=== PATIENT | male | born 1990 | race Caucasian/White ===

== ENCOUNTER 2018-09-19 15:25 | Emergency (ER) | payer OTHER ==
[~2018-09-19] VITALS: Ht 185.4 cm; Wt 86.2 kg
[2018-09-19] MEDS ORDERED: ENTYVIO300 MG (15:36)
[2018-09-19] MEDS ORDERED: ENTYVIO300 MG IV (21:28)
[2018-09-19] MEDS ORDERED: LEVSIN/SL0.125 MG SL (21:28)
[2018-09-19] MEDS ORDERED: MEDROLPACK PO (21:28)
[2018-09-19] MEDS ORDERED: KETO10TA2 PO (21:28)
== END 2018-09-19 22:02 | disposition home or self-care (01) ==
LOC: ER 15:25
DX: M54.6 Pain in thoracic spine (principal); M54.5 Low back pain; M79.18 Myalgia, other site; N20.9 Urinary calculus, unspecified